=== PATIENT | female | born 1990 | race Caucasian/White ===

== ENCOUNTER 2019-07-31 14:49 | Emergency (ER) | payer OTHER ==
[~2019-07-31] VITALS: Ht 175.3 cm; Wt 133.8 kg
[2019-07-31 14:57] LABS: ABSOLUTE NEUTROPHILS 10.1 thou/uL (1.4-8.2); BASOPHILS 0.5 % (0.0-2.0); EOSINOPHILS 0.8 % (0.0-3.0); HEMATOCRIT 39.8 % (37.0-47.0); HEMOGLOBIN 12.9 gm/dL (12.0-15.0); LYMPHOCYTES 19.2 % (24.0-44.0); MCH 29.1 pg (26.0-34.0); MCHC 32.4 g/dL (28.0-37.0); MCV 90.1 fL (80.0-100.0); PLATELET COUNT 457 thou/uL (150-400); POLYS 72.5 % (36.0-66.0); RBC 4.42 mil/uL (4.20-5.00); RDW 13.2 % (10.5-14.5); WBC 13.9 thou/uL (4.0-11.0)
[2019-07-31 15:07] LABS: CALCIUM 9.3 mg/dL (8.5-10.1); POTASSIUM 4.1 mmol/L (3.5-5.1)
[2019-07-31 15:12] LABS: APTT 22.9 Seconds (24.5-32.8); PROTIME 10.3 Seconds (9.3-11.4)
[2019-07-31 16:56] LABS: URINE BILIRUBIN NEGATIVE (Negative); URINE BLOOD 3+ (Negative); URINE CLARITY SL CLOUDY; URINE COLOR YELLOW; URINE GLUCOSE-RANDOM* NEGATIVE (Negative); URINE KETONES TRACE (Negative); URINE LEUKOCYTES-REFLEX TRACE (Negative); URINE PROTEIN (DIPSTICK) NEGATIVE (Negative); URINE SPECIFIC GRAVITY 1.025 (1.005-1.035); URINE UROBILINOGEN 0.2 E.U./dl (0.2-1.0)
[2019-07-31 16:58] LABS: URINE NITRITE-REFLEX POSITIVE (Negative)
[2019-07-31 17:06] LABS: SQUAMOUS 0-3 Few /LPF (0-3)
[2019-07-31 17:07] LABS: BACTERIA-REFLEX >30 Many /HPF (None Seen); CASTS None Seen /LPF (None Seen); CRYSTALS None Seen /LPF (None Seen); URINE RBC 3-10 Few /HPF (0-2); URINE WBC-REFLEX 6-15 Few /HPF (0-5); YEAST-REFLEX Present (None Seen)
[2019-07-31 20:00] VITALS: BP 124/50
== END 2019-07-31 19:58 | disposition short-term general hospital (02) ==
LOC: ER 14:49
PROVIDERS: Emergency Medicine
DX: N20.0 Calculus of kidney (principal); Z90.49 Acquired absence of other specified parts of digestive tract

== ENCOUNTER → 2020-05-19 | Outpatient (CLI) | payer OTHER | LOC: RAD 08:57 | PROVIDERS: ATTEND Neuromusculoskeletal Medicine & OMM | DX: M25.571 Pain in right ankle and joints of right foot (principal) ==